=== PATIENT | male | born 1955 | race Caucasian/White ===

== ENCOUNTER 2024-01-13 17:09 | Inpatient (IN) | payer OTHER ==
[~2024-01-13] VITALS: Ht 165.1 cm; Wt 70.3 kg
[2024-01-13 17:18] VITALS: BP 140/80
[2024-01-13 17:43] LABS: BASO % 0.5 % (0.0-1.0); EOS # 0.4 10*3/uL (0.0-0.4); EOS % 5.6 % (1.0-4.0); HEMATOCRIT 42.3 % (42.0-52.0); LYMPH # 1.4 10*3/uL (1.3-4.4); LYMPH % 22.2 % (27.0-41.0); MEAN CELL VOLUME 92.8 fl (80.0-94.0); MEAN CORPUSCULAR HGB CONC 32.4 g/dl (33.0-37.0); MEAN PLATELET VOLUME 9.4 fl (9.6-12.3); MONO # 0.9 10*3/uL (0.1-1.0); MONO % 14.4 % (3.0-9.0); NEUT # 3.7 10*3/uL (2.3-7.9); PLATELET COUNT AUTOMATED 261 10*3/uL (130-400); RED BLOOD COUNT 4.56 10*6/uL (4.50-5.90); RED CELL DISTRI WIDTH 13.1 % (0-14.5); WHITE BLOOD COUNT 6.4 10*3/uL (4.8-10.8)
[2024-01-13 17:53] LABS: ACT PARTIAL THROMBO TIME 27.1 SECONDS (20.0-32.1)
[2024-01-13 18:08] LABS: ALKALINE PHOSPHATASE 92 U/L (46-116); BUN 11 mg/dl (9-23); CHLORIDE 104 mmol/L (98-107); CPK 286 U/L (34-171); POTASSIUM 3.7 mmol/L (3.4-5.1); SGPT/ALT 16 U/L (5-49); TOTAL PROTEIN 7.3 gm/dL (6.0-8.0)
[2024-01-13 18:10] LABS: ETHYL ALCOHOL < 3.0 mg/dl (<3)
[2024-01-13 18:30] LABS: BILIRUBIN Negative (Negative); BLOOD Negative (Negative); CLARITY Clear (Clear); COLOR Yellow (Yellow); GLUCOSE 3+ (Negative); KETONE Negative (Negative); LEUKO ESTERASE Negative (Negative); NITRITE Negative (Negative); PH 6.5 (4.5-8.0); SPECIFIC GRAVITY 1.025 (1.001-1.030)
[2024-01-13 18:38] LABS: URINE AMPHETAMINES Negative (1000ng/ml); URINE BARBITURATES Negative (200ng/ml); URINE BENZODIAZEPINES Negative (200ng/ml); URINE CANNABINOIDS (THC) Negative (50ng/ml); URINE COCAINE Negative (300ng/ml); URINE METHADONE Negative (300ng/ml); URINE OPIATES Negative (300ng/ml); URINE PHENCYCLIDINE Negative (25ng/ml)
[2024-01-13 18:43] LABS: EPITHELIAL CELLS 0-2; WBC 0-2 wbc/hpf (0-5)
[2024-01-13] MEDS ORDERED: SODIUM CHLORIDE 0.9% 1,000 ML IV ONE (18:45)
[2024-01-13] MEDS ORDERED: METFORMIN HYD1000 MG PO (22:04)
[2024-01-13] MEDS ORDERED: LEVETIRACE100 MG/1 M PO (22:05)
[2024-01-13] MEDS ORDERED: SEMGLEE (Y100 UNIT/2 SC (22:06)
[2024-01-13] MEDS ORDERED: ASPIRIN ADULT L81 M2 PO (22:07)
[2024-01-13] MEDS ORDERED: ATORVASTATIN CA40 M1 PO (22:08)
[2024-01-13] MEDS ORDERED: CLARITIN10 MG PO (22:09)
[2024-01-13] MEDS ORDERED: DEPAKOTE ER250 MG PO (22:12)
[2024-01-13 22:25] VITALS: BP 128/72
[2024-01-14] MEDS ORDERED: FLONASE ALLERG9.9 ML NAS (00:14)
[2024-01-14] MEDS ORDERED: LORazepam 2 MG/ML VIAL IM PRN (00:30)
[2024-01-14] MEDS ORDERED: Ziprasidone Mesylate 20 MG VIAL IM PRN (00:30)
[2024-01-14] MEDS ORDERED: LORazepam 1 MG TAB PO PRN (00:30)
[2024-01-14] MEDS ORDERED: MG-AL HYDROXIDE/SIMETICONE 30 ML UDC PO PRN (00:35)
[2024-01-14] MEDS ORDERED: Water, Sterile 10 ML VIAL IM PRN (00:35)
[2024-01-14] MEDS ORDERED: Magnesium Hydroxide 30 ML UDC PO PRN (00:35)
[2024-01-14] MEDS ORDERED: ACETAMINOPHEN 325 MG TAB PO PRN (00:35)
[2024-01-14] MEDS ORDERED: Menthol/Zinc Oxide 4 GM THIN T PRN (00:45)
[2024-01-14 07:02] LABS: BASO % 0.6 % (0.0-1.0); EOS # 0.4 10*3/uL (0.0-0.4); EOS % 5.7 % (1.0-4.0); LYMPH # 1.5 10*3/uL (1.3-4.4); LYMPH % 22.9 % (27.0-41.0); MEAN CORPUSCULAR HGB 30.8 pg (27.0-31.0); MEAN CORPUSCULAR HGB CONC 33.5 g/dl (33.0-37.0); MEAN PLATELET VOLUME 9.6 fl (9.6-12.3); MONO # 0.8 10*3/uL (0.1-1.0); MONO % 12.7 % (3.0-9.0); NEUT # 3.7 10*3/uL (2.3-7.9); NEUT % 57.6 % (47.0-73.0); PLATELET COUNT AUTOMATED 229 10*3/uL (130-400); RED BLOOD COUNT 4.35 10*6/uL (4.50-5.90); RED CELL DISTRI WIDTH 12.7 % (0-14.5); WHITE BLOOD COUNT 6.5 10*3/uL (4.8-10.8)
[2024-01-14 07:29] LABS: CHOLESTEROL 172 mg/dL (<200); LDL CHOLESTEROL 125 mg/dL (9-159); TRIGLYCERIDES 60 mg/dl (<150)
[2024-01-14 07:33] LABS: ALKALINE PHOSPHATASE 86 U/L (46-116); BUN 10 mg/dl (9-23); CHLORIDE 105 mmol/L (98-107); POTASSIUM 3.7 mmol/L (3.4-5.1); SGPT/ALT 13 U/L (5-49); TOTAL PROTEIN 6.8 gm/dL (6.0-8.0)
[2024-01-14 07:38] LABS: VALPROIC ACID (DEPAKENE) < 3.0 ug/ml (50-100)
[2024-01-14 07:54] LABS: VITAMIN D, 25-HYDROXY 27.3 ng/mL (30-100)
[2024-01-14 08:00] VITALS: BP 123/76
[2024-01-14] MEDS ORDERED: FLUTICASONE PROPIONATE Nasal 16 Gm spray NAS SCH (09:00)
[2024-01-14] MEDS ORDERED: CITALOPRAM 20 MG TAB PO SCH (09:00)
[2024-01-14] MEDS ORDERED: LEVETIRACETAM 500 MG/5 ML UDC PO SCH (09:00)
[2024-01-14] MEDS ORDERED: DIVALPROEX (DR) 250 MG TAB PO SCH (09:00)
[2024-01-14] MEDS ORDERED: DIVALPROEX ER 250 MG TAB PO SCH (10:00)
[2024-01-14] MEDS ORDERED: ASPIRIN ENTERIC COATED 81 MG TAB PO SCH (10:00)
[2024-01-14] MEDS ORDERED: LEVETIRACETAM IN NACL (ISO-OS) 100 ML IV SCH (10:00)
[2024-01-14] MEDS ORDERED: LORATADINE 10 MG TAB PO SCH (10:00)
[2024-01-14 14:00] VITALS: BP 123/76
[2024-01-14] MEDS ORDERED: DEXTROSE 10 % IN WATER 250 ML IV PRN (17:55)
[2024-01-14 20:00] VITALS: BP 144/93
[2024-01-14] MEDS ORDERED: INSULIN LISPRO 1 UNIT/0.01 ML SQ SCH (22:00)
[2024-01-14] MEDS ORDERED: Insulin Glargine, Recombinan 300 UNITS/3 ML PEN SC SCH (22:00)
[2024-01-14] MEDS ORDERED: ATORVASTATIN CALCIUM 40 MG TABLET PO SCH (22:00)
[2024-01-15 08:00] VITALS: BP 131/71
[2024-01-15] MEDS ORDERED: hydrOXYzine pamoate 25 MG CAP PO PRN (08:40)
[2024-01-15] MEDS ORDERED: Cholecalciferol 5,000 IU CAP (125 MCG) PO SCH (09:00)
[2024-01-15 20:00] VITALS: BP 124/72
[2024-01-15] MEDS ORDERED: RAMELTEON 8 MG TAB PO SCH (21:00)
[2024-01-16 08:00] VITALS: BP 140/55
[2024-01-16 19:17] VITALS: BP 103/49
[2024-01-16 20:30] VITALS: BP 132/60
[2024-01-17 08:00] VITALS: BP 103/57
[2024-01-17] MEDS ORDERED: CITALOPRAM 20 MG TAB PO SCH (09:00)
[2024-01-17 20:00] VITALS: BP 119/61
[2024-01-18 07:21] VITALS: BP 118/69
[2024-01-18 20:00] VITALS: BP 113/62
[2024-01-19 08:00] VITALS: BP 110/55
[2024-01-19 19:19] VITALS: BP 105/57
[2024-01-20 08:00] VITALS: BP 116/65
[2024-01-20] MEDS ORDERED: CITALOPRAM20 MG PO (10:11)
[2024-01-20] MEDS ORDERED: DIVALPROEX SOD250 MG PO (10:11)
[2024-01-20] MEDS ORDERED: VITAMIN D3125 MC1 PO (10:11)
[2024-01-20] MEDS ORDERED: RAMELTEON8 MG PO (10:11)
== END 2024-01-20 15:18 | DRG 885 ==
LOC: ED 17:09 → EDBD 17:13 → ED 17:13 → 3N 22:27
PROVIDERS: Emergency Medicine; Nurse Practitioner Family; ADMIT Psychiatry & Neurology Psychiatry; ATTEND Psychiatry & Neurology Psychiatry
PROC: GZHZZZZ Group Psychotherapy (ICD-10-PCS; principal; 2024-01-14)
PROC: GZ51ZZZ Individual Psychotherapy, Behavioral (ICD-10-PCS; 2024-01-14)
DX: F33.9 Major depressive disorder, recurrent, unspecified (principal); F63.81 Intermittent explosive disorder; E11.65 Type 2 diabetes mellitus with hyperglycemia; D64.9 Anemia, unspecified; G40.909 Epilepsy, unspecified, not intractable, without status epilepticus; F41.1 Generalized anxiety disorder; E55.9 Vitamin D deficiency, unspecified; I25.10 Atherosclerotic heart disease of native coronary artery without angina pectoris; E78.00 Pure hypercholesterolemia, unspecified; R81 Glycosuria; Z79.4 Long term (current) use of insulin